=== PATIENT | male | born 1965 | race Caucasian/White ===

== ENCOUNTER 2021-04-20 23:39 | Emergency (ER) | payer SELFPAY ==
--- NOTE | 2021-04-21 00:32 | EDM.PDOC ---
ED HPI GENERAL MEDICAL PROBLEM - General Chief Complaint: Abdominal Pain Stated Complaint: BODY ACHES/NAUSEA/UTI Time Seen by Provider: 04/21/21 00:30 - History of Present Illness INITIAL COMMENTS - FREE TEXT/NARRATIVE: 56-year-old male presents the emergency room with abdominal pain. Apparently this pain is been going on for several weeks but really escalated over the last 24 hours. He describes it as low back and wrapping around into his right abdomen. He also has a painful lump in his right testicle. He is not sure how long that is been there. Patient may have had some fevers but these were low-grade. At times he has some nausea loss of appetite no significant diarrhea or constipation however. His urine has been off-color and foul- smelling. Right Abdomen Pain Score (Numeric/FACES): 10 - Related Data Allergies Allergy/AdvReac Type Severity Reaction Status Date / Time No Known Allergies Allergy Verified 04/21/21 00:15 Home Meds: Home Meds Ciprofloxacin HCl [Cipro] 500 mg PO BID #20 tablet 04/21/21 [Rx] Hydrocodone/Acetaminophen [HYDROcodone-Acetaminophen 5-325 MG] 1 - 2 each PO Q6H PRN #20 tab 04/21/21 [Rx] Ondansetron [Zofran] 4 mg PO Q6H PRN #12 tab 04/21/21 [Rx] metroNIDAZOLE [Flagyl] 500 mg PO Q8H #30 tab 04/21/21 [Rx] Past Medical History - Infectious Disease History Infectious Disease History: Reports: Hepatitis C - Past Surgical History GI Surgical History: Reports: Appendectomy ED ROS GENERAL - Review of Systems Review Of Systems: See Below Constitutional: Reports: Fever, Chills, Malaise HEENT: Reports: No Symptoms Respiratory: Reports: Cough. Denies: Shortness of Breath Cardiovascular: Reports: Palpitations GI/Abdominal: Reports: Abdominal Pain, Decreased Appetite, Nausea : Reports: Other (Foul-smelling urine). Denies: Urinary Retention Musculoskeletal: Reports: No Symptoms Skin: Reports: No Symptoms Neurological: Reports: No Symptoms ED EXAM, GENERAL - Physical Exam Exam: See Below Exam Limited By: Uncooperative General Appearance: Alert, No Apparent Distress Eye Exam: Bilateral Eye: Normal Inspection Ears: Normal External Exam, Normal Canal, Hearing Grossly Normal, Normal TMs Nose: Normal Inspection, Normal Mucosa, No Blood Throat/Mouth: Normal Inspection, Normal Lips, Normal Teeth, Normal Gums, Normal Oropharynx, Normal Voice, No Airway Compromise Head: Atraumatic, Normocephalic Neck: Normal Inspection, Supple, Non-Tender, Full Range of Motion. No: Lymphadenopathy (L), Lymphadenopathy (R) Respiratory/Chest: No Respiratory Distress, Lungs Clear, Normal Breath Sounds Cardiovascular: Regular Rate, Rhythm, No Edema, No Murmur GI/Abdominal: Normal Bowel Sounds, Soft, Other (He has had diffuse tenderness left lower quadrant seems to be the worst that he has some right upper quadrant tenderness as well he has a external mass on the right lower quadrant) (Male) Exam: Other Rectal (Males) Exam: Normal Exam, Normal Rectal Tone, Prostate Normal Back Exam: Normal Inspection, Full Range of Motion. No: CVA Tenderness (L), CVA Tenderness (R) Extremities: Normal Inspection Neurological: Alert, Oriented, Normal Cognition Psychiatric: Normal Affect, Normal Mood #1 Interpretation EKG Date: 04/21/21 Rhythm: NSR Rate (Beats/Min): 65 Orange: Normal P-Wave: Present QRS: Normal ST-T: Normal QT: Normal Course - Vital Signs Last Recorded V/S: Last Vital Signs Temp 36.9 C 04/21/21 00:07 Pulse 69 04/21/21 00:07 Resp 20 04/21/21 00:07 BP 191/105 H 04/21/21 00:07 Pulse Ox 97 04/21/21 00:07 - Orders/Labs/Meds Orders: Active Orders 24 hr Category Date Time Status Abdomen Pelvis w Cont [CT] Stat Exams 04/21/21 00:52 Taken Scrotum and Contents [US] Stat Exams 04/21/21 00:56 Taken Sodium Chloride 0.9% [Normal Saline] 1,000 ml Med 04/21/21 01:15 Active IV ASDIRECTED Medication Orders Sodium Chloride (Normal Saline) 1,000 mls @ 150 mls/hr IV ASDIRECTED JAMIA Last Admin: 04/21/21 01:23 Dose: 150 mls/hr Documented by: YUSRA Labs: Laboratory Tests 04/21/21 04/21/21 04/21/21 Range/Units 01:05 01:05 01:05 WBC 8.00 (4.23-9.07) K/mm3 RBC 5.57 (4.63-6.08) M/mm3 Hgb 16.4 (13.7-17.5) gm/dl Hct 47.9 (40.1-51.0) % MCV 86.0 (79.0-92.2) fl MCH 29.4 (25.7-32.2) pg MCHC 34.2 (32.2-35.5) g/dl RDW Std Deviation 40.3 (35.1-43.9) fL Plt Count 201 (163-337) K/mm3 MPV 10.6 (9.4-12.3) fl Neut % (Auto) 76.6 H (34.0-67.9) % Lymph % (Auto) 13.4 L (21.8-53.1) % Irwin % (Auto) 8.5 (5.3-12.2) % Eos % (Auto) 1.0 (0.8-7.0) Baso % (Auto) 0.4 (0.1-1.2) % Neut # (Auto) 6.13 H (1.78-5.38) K/mm3 Lymph # (Auto) 1.07 L (1.32-3.57) K/mm3 Irwin # (Auto) 0.68 (0.30-0.82) K/mm3 Eos # (Auto) 0.08 (0.04-0.54) K/mm3 Baso # (Auto) 0.03 (0.01-0.08) K/mm3 PT 10.4 (9.7-12.0) SECONDS INR 0.93 Sodium 134 L (136-145) mEq/L Potassium 4.5 (3.5-5.1) mEq/L Chloride 101 (98-107) mEq/L Carbon Dioxide 30 (21-32) mEq/L Anion Gap 7.5 (5-15) BUN 16 (7-18) mg/dL Creatinine 1.0 (0.7-1.3) mg/dL Est Cr Clr Drug Dosing 80.75 mL/min Estimated GFR (MDRD) > 60 (>60) mL/min BUN/Creatinine Ratio 16.0 (14-18) Glucose 122 H (70-99) mg/dL Calcium 9.4 (8.5-10.1) mg/dL Total Bilirubin 0.6 (0.2-1.0) mg/dL AST 26 (15-37) U/L ALT 43 (16-63) U/L Alkaline Phosphatase 99 (46-116) U/L Total Protein 8.0 (6.4-8.2) g/dl Albumin 4.0 (3.4-5.0) g/dl Globulin 4.0 gm/dL Albumin/Globulin Ratio 1.0 (1-2) Urine Color (Yellow) Urine Appearance (Clear) Urine pH (5.0-8.0) Ur Specific Alliance (1.005-1.030) Urine Protein (Negative) Urine Glucose (UA) (Negative) Urine Ketones (Negative) Urine Occult Blood (Negative) Urine Nitrite (Negative) Urine Bilirubin (Negative) Urine Urobilinogen (0.2-1.0) Ur Leukocyte Esterase (Negative) SARS-CoV-2 RNA (VITALIY) (NEGATIVE) 04/21/21 04/21/21 Range/Units 01:30 02:10 WBC (4.23-9.07) K/mm3 RBC (4.63-6.08) M/mm3 Hgb (13.7-17.5) gm/dl Hct (40.1-51.0) % MCV (79.0-92.2) fl MCH (25.7-32.2) pg MCHC (32.2-35.5) g/dl RDW Std Deviation (35.1-43.9) fL Plt Count (163-337) K/mm3 MPV (9.4-12.3) fl Neut % (Auto) (34.0-67.9) % Lymph % (Auto) (21.8-53.1) % Irwin % (Auto) (5.3-12.2) % Eos % (Auto) (0.8-7.0) Baso % (Auto) (0.1-1.2) % Neut # (Auto) (1.78-5.38) K/mm3 Lymph # (Auto) (1.32-3.57) K/mm3 Irwin # (Auto) (0.30-0.82) K/mm3 Eos # (Auto) (0.04-0.54) K/mm3 Baso # (Auto) (0.01-0.08) K/mm3 PT (9.7-12.0) SECONDS INR Sodium (136-145) mEq/L Potassium (3.5-5.1) mEq/L Chloride (98-107) mEq/L Carbon Dioxide (21-32) mEq/L Anion Gap (5-15) BUN (7-18) mg/dL Creatinine (0.7-1.3) mg/dL Est Cr Clr Drug Dosing mL/min Estimated GFR (MDRD) (>60) mL/min BUN/Creatinine Ratio (14-18) Glucose (70-99) mg/dL Calcium (8.5-10.1) mg/dL Total Bilirubin (0.2-1.0) mg/dL AST (15-37) U/L ALT (16-63) U/L Alkaline Phosphatase (46-116) U/L Total Protein (6.4-8.2) g/dl Albumin (3.4-5.0) g/dl Globulin gm/dL Albumin/Globulin Ratio (1-2) Urine Color Yellow (Yellow) Urine Appearance Clear (Clear) Urine pH 8.5 H (5.0-8.0) Ur Specific Alliance 1.020 (1.005-1.030) Urine Protein Negative (Negative) Urine Glucose (UA) Negative (Negative) Urine Ketones Negative (Negative) Urine Occult Blood Negative (Negative) Urine Nitrite Negative (Negative) Urine Bilirubin Negative (Negative) Urine Urobilinogen 1.0 (0.2-1.0) Ur Leukocyte Esterase Negative (Negative) SARS-CoV-2 RNA (VITALIY) Negative (NEGATIVE) Meds: Medications Generic Name Dose Route Start Last Admin Trade Name Freq PRN Reason Stop Dose Admin Sodium Chloride 1,000 mls @ 150 mls/hr 04/21/21 01:15 04/21/21 01:23 Normal Saline IV 150 mls/hr ASDIRECTED JAMIA Administration Discontinued Medications Generic Name Dose Route Start Last Admin Trade Name Freq PRN Reason Stop Dose Admin Hydrocodone Bitart/Acetaminophen 1 tab 04/21/21 03:24 04/21/21 03:34 Acetaminophen/Hydrocodone 325-5 Mg Tab PO 04/21/21 03:25 1 tab ONETIME ONE Administration Fentanyl 50 mcg 04/21/21 05:24 04/21/21 05:31 Fentanyl 100 Mcg/2 Ml Sdv IVPUSH 04/21/21 05:25 50 mcg ONETIME ONE Administration Hydromorphone HCl 0.5 mg 04/21/21 01:09 04/21/21 01:22 Hydromorphone 0.5 Mg/0.5 Ml Syringe IVPUSH 04/21/21 01:10 0.5 mg ONETIME ONE Administration Levofloxacin 500 mg 04/21/21 03:21 04/21/21 03:34 Levofloxacin 500 Mg Tab PO 04/21/21 03:22 500 mg ONETIME ONE Administration Metronidazole 500 mg 04/21/21 03:21 04/21/21 03:34 Metronidazole 500 Mg Tab PO 04/21/21 03:22 500 mg ONETIME ONE Administration Ondansetron HCl 4 mg 04/21/21 01:09 04/21/21 01:22 Ondansetron 4 Mg/2 Ml Sdv IVPUSH 04/21/21 01:10 4 mg ONETIME ONE Administration Ondansetron HCl 4 mg 04/21/21 04:06 04/21/21 04:13 Ondansetron 4 Mg/2 Ml Sdv IVPUSH 04/21/21 04:07 4 mg ONETIME ONE Administration - Re-Assessments/Exams Free Text/Narrative Re-Assessment/Exam: 04/21/21 04:11 Labs reviewed no urinary tract infection white count slightly elevated no suggestive pathology. I obtained a abdominal pelvic CT with a concern of a possible kidney stone did it with out oral contrast as it turns out he has diverticulitis this involves the sigmoid colon there is no evidence of perforation or abscess appendix is visualized no evidence of appendicitis. Patient started on oral Levaquin and Flagyl he will take Cipro rather than Levaquin after discharge. Departure - Departure Time of Disposition: 04:15 Disposition: Home, Self-Care 01 Clinical Impression: Diverticulitis - Discharge Information Prescriptions: Ciprofloxacin HCl [Cipro] 500 mg PO BID #20 tablet metroNIDAZOLE [Flagyl] 500 mg PO Q8H #30 tab Hydrocodone/Acetaminophen [HYDROcodone-Acetaminophen 5-325 MG] 1 - 2 each PO Q6H PRN #20 tab PRN Reason: Pain Ondansetron [Zofran] 4 mg PO Q6H PRN #12 tab PRN Reason: Nausea/Vomiting Instructions: Diverticulitis, [id number] Referrals: PCP,None [Primary Care Provider] - Forms: ED Department Discharge Additional Instructions: Return to the emergency room with any questions problems or worsening symptoms. You have been started on 2 antibiotics the first 1 is Cipro this is to be taken twice daily however today started in the evening. The second is Flagyl your first dose was given here in the emergency room take it every 8 hours take your next dose around 11 AM or noon. For pain you are given hydrocodone take 1 or 2 every 6 hours only if absolutely needed for pain do not drive or return to work within 12 hours of taking this. You were given Zofran for nausea and vomiting take 1 every 6 hours if needed. Follow-up in the hospital clinic for recheck on Wednesday or . It is essential you establish with somebody to get your blood pressure under control. Sepsis Event Note (ED) - Evaluation Sepsis Screening Result: No Definite Risk - Focused Exam Vital Signs: Vital Signs Temp Pulse Resp BP Pulse Ox 04/21/21 00:07 36.9 C 69 20 191/105 H 97 - My Orders Last 24 Hours: My Active Orders 04/21/21 00:52 Abdomen Pelvis w Cont [CT] Stat 04/21/21 00:56 Scrotum and Contents [US] Stat 04/21/21 01:15 Sodium Chloride 0.9% [Normal Saline] 1,000 ml IV ASDIRECTED - Assessment/Plan Last 24 Hours: My Active Orders 04/21/21 00:52 Abdomen Pelvis w Cont [CT] Stat 04/21/21 00:56 Scrotum and Contents [US] Stat 04/21/21 01:15 Sodium Chloride 0.9% [Normal Saline] 1,000 ml IV ASDIRECTED
[2021-04-21] MEDS ORDERED: Ondansetron 4 MG/2 ML SDV IVPUSH ONE ×2 (01:09→04:06)
[2021-04-21] MEDS ORDERED: HYDROmorphone 0.5 MG/0.5 ML Syringe IVPUSH ONE (01:09)
[2021-04-21] MEDS ORDERED: Sodium Chloride 0.9% 1,000 ML IV SCH (01:15)
[2021-04-21] MEDS ORDERED: Levofloxacin 500 MG Tab PO ONE (03:21)
[2021-04-21] MEDS ORDERED: metroNIDAZOLE 500 MG Tab PO ONE (03:21)
[2021-04-21] MEDS ORDERED: Acetaminophen/HYDROcodone 325-5 MG Tab PO ONE (03:24)
[2021-04-21] MEDS ORDERED: fentaNYL 100 MCG/2 ML SDV IVPUSH ONE (05:24)
--- NOTE | 2021-04-21 07:06 | US ---
Testicular ultrasound: Multiple real-time images of the testicles were obtained. Comparison: No prior testicular imaging is available. Findings: Both testicles have a homogeneous ultrasound appearance. Arterial and venous blood flow are seen. Right testicle measures 4.0 x 2.3 x 3.2 cm and left testicle measures 3.0 x 2.1 x 3.4 cm. Minimal hydroceles are seen around both testicles. No discrete epididymal abnormalities are definitely appreciated. Impression: 1. No intratesticular abnormality is seen. 2. Small bilateral hydroceles. Diagnostic code #2 I agree with preliminary report from [facility], finalized on 04/21/21, 4:10 AM CDT, code 1
--- NOTE | 2021-04-21 07:14 | CT ---
CT abdomen and pelvis Technique: Multiple axial sections were obtained from above the dome of the diaphragm inferiorly through the pubic symphysis. Intravenous contrast was utilized. No oral contrast has been given. Delayed images were also obtained from above the kidneys inferiorly through the bladder. Reconstructed coronal and sagittal images were obtained. Comparison: No prior abdominal imaging is available. Findings: Inflammatory change is seen at the junction of the descending and sigmoid colon with diverticuli. Findings most likely represent a mild diverticulitis. No fluid collections are seen to indicate a diverticular abscess. Visualized lung bases show nothing acute. Liver contains no focal parenchymal abnormality. Spleen size is normal. Adrenal glands show no nodule. Pancreas shows no abnormality. Kidneys show symmetric contrast enhancement without hydronephrosis or mass. Abdominal aorta shows no aneurysm. Small retroperitoneal lymph nodes are seen which are believed to be within normal limits. Gallbladder contains no calcified gallstones. No mesenteric abnormalities are seen. Small fat-containing umbilical hernia is noted. Cystic area is noted within the right lower anterior abdominal wall to the right of midline. This measures about 8.0 cm in greatest size. No pelvic mass or adenopathy is seen. Delayed images show contrast excretion from both kidneys into nondilated ureters. Contrast also noted within the bladder. Bone window settings were reviewed. No acute osseous abnormality is seen. Minimal endplate spurring scattered within the spine is seen. Impression: 1. Mild diverticulitis as noted above. No fluid collections are seen to indicate diverticular abscess. 2. Large fluid-filled collection within the lower right sided anterior abdominal wall measuring up to 8.0 cm. Please correlate as to etiology. 3. No other acute abnormality is seen on CT study of the abdomen and pelvis. Diagnostic code #3 I agree with preliminary report from [facility], finalized on 04/21/21, 3:23 AM CDT, code 1
== END 2021-04-21 06:38 | disposition home or self-care (01) ==
LOC: JD.ED 23:39
DX: K57.32 Diverticulitis of large intestine without perforation or abscess without bleeding (principal); Z20.822 Contact with and (suspected) exposure to COVID-19
CPT/HCPCS: 36415; 74177; 74177-26; 76870; 76870-26; 80053; 81003; 85025; 85610; 93005; 93975; 96374; 96375; 96376; 99284-25; A9270-GY; J1170; J2405; J3010; J7030; U0002